=== PATIENT | female | born 1995 | race Caucasian/White ===

== ENCOUNTER 2016-12-20 05:30 | Day surgery (SDC) | payer BC ==
[~2016-12-20 05:30] MED LIST: FLORINEF ACETA0.1 MG PO; LOESTRIN 21 1.1 EACH PO; ZYRTEC10 M7 PO
== END 2016-12-20 12:50 ==
LOC: SHSB 05:30 → ORE 07:53 → PACU 08:36 → SHSB 08:50
PROC: 09B Ear, Nose, Sinus, Excision (ICD-10-PCS; principal; 2016-12-20)
PROC: 09B Ear, Nose, Sinus, Excision (ICD-10-PCS; 2016-12-20)
DX: J32.0 Chronic maxillary sinusitis (principal); J45.909 Unspecified asthma, uncomplicated; Z79.899 Other long term (current) drug therapy; Z88.2 Allergy status to sulfonamides; Z98.890 Other specified postprocedural states